=== PATIENT | female | born 1965 | race Caucasian/White ===

== ENCOUNTER 2023-01-28 17:38 | Emergency (ER) | payer BC, MEDICARE, SELFPAY ==
[2023-01-28 17:45] VITALS: BP 136/73; PULSE 86; RESP 16; TEMP 36.9; O2SAT 97
--- NOTE | 2023-01-28 18:00 | DI.RAD_ITS ---
Exam(s) XR FOOT RT COMPLETE EXAM: XR FOOT RT COMPLETE CLINICAL HISTORY: Pain proximal fifth metatarsal status post injury. TECHNIQUE: 2D digital imaging was performed. COMPARISON: No exams were available for comparison FINDINGS: 3 views There is an acute spiral fracture at the mid and distal diaphysis of the 5th metatarsal, mildly displ aced. This extends to involve the neck of the 5th metatarsal. No other fractures identified. No osseous lesions. No radiopaque foreign body. IMPRESSION: Fifth metatarsal fracture as described above. DATA REPOSITORY: RADIATION DOSE DELIVERED:
--- NOTE | 2023-01-28 18:09 | ED.GENADUL_ITS ---
Discharge Plan Disposition Patient Disposition: Home Condition: Stable Discharge Details Clinical Impression: Fracture of fifth metatarsal bone of right foot Primary Care Provider: Oma,Local ED Provider: Daisy Urena Home Meds and New Rx's Prescriptions: New tramadol 50 mg tablet 50 mg PO Q6H PRN (Reason: pain) Qty: 30 0RF Continued potassium chloride 10 mEq capsule, extended release 10 meq PO DAILY erythromycin 250 mg tablet 250 mg PO QID Patient Comments: TAKE 1 TABLET BY MOUTH EVERY 6 HOURS UNTIL ALL TAKEN mercaptopurine 50 mg tablet 100 mg PO DAILY Patient Comments: TAKE 2 TABLETS BY MOUTH EVERY DAY folic acid 1 mg tablet 1 mg PO DAILY ergocalciferol (vitamin D2) 1,250 mcg (50,000 unit) capsule 1,250 mcg PO DAILY Patient Comments: TAKE 1 CAPSULE BY MOUTH WEEKLY epinephrine 0.3 mg/0.3 mL auto-injector 0.3 ml IM PRN PRN Patient Comments: INJECT 0.3ML INTRAMUSCULARLY DIRECTED ibuprofen 600 mg tablet 600 mg PO PRN PRN Patient Comments: TAKE 1 TABLET BY MOUTH THREE TIMES DAILY WITH MEALS fluticasone propionate 50 mcg/actuation spray,suspension 2 spray INTRANASAL PRN PRN Patient Comments: SHAKE LIQUID AND USE 2 SPRAYS IN EACH NOSTRIL EVERY DAY spironolactone 50 mg tablet 50 mg PO DAILY mesalamine 1.2 gram tablet,delayed release (DR/EC) 1.2 g PO DAILY Patient Comments: TAKE 4 TABLETS BY MOUTH DAILY naftifine [Naftin] 2 % gel 1 applic TOPICAL PRN PRN Patient Comments: APPLY A THIN LAYER TO THE AFFECTED AREA(S) PLUS A 0.5 INCH MARGIN OF HEALTHY SURROUNDING SKIN ONCE DAILY FOR TWO WEEKS Praluent Pen 150 mg/mL pen injector See Rx Instructions .ROUTE .COMPLEX Patient Comments: INJECT 150MG UNDER THE SKIN EVERY 2 WEEKS Rx Instructions: INJECT 150MG UNDER THE SKIN EVERY 2 WEEKS Discharge Instructions Instructions: Foot Fracture in Adults (ED) Additional Instructions: Ice 20 minutes on and 20 minutes off for the next 24 to 72 hours. Elevate your leg at home during this time. You may foreign exchange trader to heat after this. Wear the walking boot for support and comfort. Nonweightbearing until cleared by your opticianry teacher at home. Use your crutches as instructed. Ibuprofen 600 mg every 6 hours as needed for pain. You may alternate this with tramadol 50 to 100 mg every 6 hours as needed. Medical Decision Making Patient tells me that she sat and cried at home after this happened. She has 2 sons who are podiatrists and asked me to send the films to them. She will be following up with her son in [place] as that is where she lives. Both sons requested cam boots and a short cam boot was placed. The patient was able to ambulate with crutches. She was given a shot of IM Toradol and some tramadol to take as needed for pain. She also will take ibuprofen as needed. She does get nauseous and have visual disturbances with morphine. She will ice and elevate her foot. I did discuss the case with her son Jose and her son Daquan called as well. Ice and elevation were also advised. HPI General Date/Time Provider Initiated Documentation: 01/28/23 18:02 . HPI Narrative: This 57-year-old female patient presents with a chief complaint of right foot pain after twisting it at home. Patient tells me that she was taking the trash out and stepped on an uneven stair. She somehow twisted her foot and cannot bear weight. She states she was crying at home. She did have her grab 600 mg of ibuprofen from the car and took this after arrival in the ED. I did t ell her this was okay. The patient points to the fifth metatarsal as location of pain. She denies any other injury. Related Data Home Medications Medication Instructions Recorded Confirmed alirocumab 150 mg/mL subcutaneous See Rx Instructions .Route .COMPLEX 01/28/23 01/28/23 pen injector (Praluent Pen) epinephrine 0.3 mg/0.3 mL 0.3 ml IM PRN PRN 01/28/23 01/28/23 injection, auto-injector ergocalciferol (vitamin D2) 1,250 1,250 mcg PO DAILY 01/28/23 01/28/23 mcg (50,000 unit) capsule erythromycin 250 mg tablet 250 mg PO QID 01/28/23 01/28/23 fluticasone propionate 50 2 spray intranasal PRN PRN 01/28/23 01/28/23 mcg/actuation nasal spray,suspension folic acid 1 mg tablet 1 mg PO DAILY 01/28/23 01/28/23 ibuprofen 600 mg tablet 600 mg PO PRN PRN 01/28/23 01/28/23 mercaptopurine 50 mg tablet 100 mg PO DAILY 01/28/23 01/28/23 mesalamine 1.2 gram tablet,delayed 1.2 g PO DAILY 01/28/23 01/28/23 release naftifine 2 % topical gel (Naftin) 1 applic topical PRN PRN 01/28/23 01/28/23 potassium chloride 10 mEq 10 meq PO DAILY 01/28/23 01/28/23 capsule,extended release spironolactone 50 mg tablet 50 mg PO DAILY 01/28/23 01/28/23 tramadol 50 mg tablet 50 mg PO Q6H PRN pain #30 tabs 01/28/23 Previous Rx's Medication Instructions Recorded tramadol 50 mg tablet 50 mg PO Q6H PRN pain #30 tabs 01/28/23 Allergies Allergy/AdvReac Type Severity Reaction Status Date / Time Iodinated Contrast Media Allergy Anaphylaxis Unverified 01/28/23 17:51 nitrofurantoin Allergy Anaphylaxis Unverified 01/28/23 17:51 [From Macrobid] [id number] Reductase Allergy Anaphylaxis Unverified 01/28/23 17:51 Inhibitor morphine AdvReac Nausea Unverified 01/28/23 17:51 Opioids - Morphine Analogues AdvReac Visual Unverified 01/28/23 17:52 Disturbances General Stated Complaint: Orthopedic SAMMIE: 4 Review of Systems Musculoskeletal Musculoskeletal: Denies joint swelling, Denies numbness and Reports other (Right lateral foot pain) Integumentary/Breasts Skin/Breast: Reports other (No bruising or deformity in right foot) Neurologic Neurologic: Denies numbness PFSH All Active Problems (Updated 01/28/23 @ 19:25 by Daisy Urena MD) Fracture of fifth metatarsal bone of right foot (Acute) Social History Smoking risk assessment performed?: No Do you feel safe at home: Yes Do you feel safe in your relationship?: Yes Exam Const General: other (Uncomfortable with any foot movement) Nutritional Appearance: well nourished Orientation: alert and oriented x3 HENMT Head: normocephalic and atraumatic Eyes Conjunctivae: conjunctivae normal Neck Neck: full ROM Resp Effort & Inspection: normal respiratory effort Skin General skin exam: other (No ecchymosis or edema evident) Neuro General: other (Sensation intact right foot) Extrem Right lower extremity: normal to inspection, normal capillary refill, ankle (Ankle is atraumatic and nontender to palpation with no tib-fib pain) and foot (NTP for fifth metatarsal which is exquisitely tender; PWD) Details: motor- sensory exam (pain with 5th toe movement); no ecchymosis; no edema Course Vital Signs Vital signs: Vital Signs Temperature 36.9 C 01/28/23 17:45 Pulse 86 01/28/23 17:45 Respiratory Rate 16 01/28/23 17:45 Blood Pressure 136/73 01/28/23 17:45 Pulse Oximetry 97 01/28/23 17:45 Temperature 36.9 C 01/28/23 17:45 Temperature Source Skin 01/28/23 17:45 Pulse 86 01/28/23 17:45 Respiratory Rate 16 01/28/23 17:45 Blood Pressure 136/73 01/28/23 17:45 Blood Pressure Position Sitting 01/28/23 17:45 Pulse Oximetry 97 01/28/23 17:45 Oxygen Delivery Method Room Air 01/28/23 17:45 Oxygen Flow Rate 0 01/28/23 17:45 Pain Level 7 01/28/23 18:05
--- NOTE | 2023-01-28 18:58 | DI.VRAD_ITS ---
PROCEDURE INFORMATION: Exam: XR Right Foot Exam date and time: 01/28/2023 6:28 PM Age: 57 years old Clinical indication: Other: Pain proximal fifth metatarsal status post injury TECHNIQUE: Imaging protocol: Radiologic exam of the right foot. Views: 3 or more views. COMPARISON: No relevant prior studies available. FINDINGS: Bones/joints: Minimally displaced spiral fracture of the distal diaphysis of the 5th metatarsal. No intra-articular extension. No other acute fracture. Osseous alignment otherwise normal. No arthritic change. Soft tissues: Normal. IMPRESSION: Fracture of the distal shaft of the 5th metatarsal Dictated and Authenticated by: Uri Mccracken MD. Ordering:JOANNA Villa MD
[2023-01-28] MEDS: traMADol 50 MG TAB PO (19:30)
[2023-01-28] MEDS: Ketorolac 30 MG/ML VIAL IM (19:31)
[2023-01-28] MEDS: traMADol 50 MG TAB (19:55)
--- NOTE | 2023-01-30 11:18 | NUR.NOTE ---
Nursing Note: Accessed pt chart to get the discharge diagnosis for [facility].
== END 2023-01-28 19:40 | disposition home or self-care (01) ==
PROVIDERS: Emergency Provider Emergency Medicine
DX: S92.351A Displaced fracture of fifth metatarsal bone, right foot, initial encounter for closed fracture (principal); X50.1XXA Overexertion from prolonged static or awkward postures, initial encounter; Y93.01 Activity, walking, marching and hiking; Y92.018 Other place in single-family (private) house as the place of occurrence of the external cause; Y99.9 Unspecified external cause status
CPT/HCPCS: 99283; 73630; J1885